=== PATIENT | female | born 1980 | race Caucasian/White ===

== ENCOUNTER 2020-08-14 08:45 | Emergency (ER) | payer MEDICAID ==
[~2020-08-14] VITALS: Ht 154.9 cm; Wt 65.9 kg
[2020-08-14 08:46] VITALS: BP 130/88
[2020-08-14] MEDS ORDERED: LORazepam 1 MG tablet PO ONE (09:20)
[2020-08-14 09:42] LABS: CLARITY,URINE CLEAR (Clear); COLOR,URINE YELLOW (Yellow); GLUCOSE, URINE NEGATIVE (Neg); KETONES,URINE TRACE mg/dl (Neg); LEUKOCYTE ESTERASE ,URINE NEGATIVE (Neg); NITRITES, URINE NEGATIVE (Neg); OCCULT BLOOD,URINE TRACE-INTACT (Neg); PH,URINE 5.5 (4.8-8.0); PROTEIN,URINE NEGATIVE (Neg); URINE HCG NEGATIVE (NEG); UROBILINOGEN,URINE 0.2 E.U/dL (0.2-1.0)
[2020-08-14 09:45] LABS: UA COLLECTION TYPE CLN CATCH MIDSTREAM
[2020-08-14 09:46] LABS: BACTERIA,URINE NONE SEEN /HPF (Neg); MUCUS STRANDS FEW /LPF (Neg); RBC,URINE 0-2 /HPF (0-2); SQUAMOUS EPITHELIAL CELL,UR FEW /LPF (FEW); WBC,URINE NONE SEEN /HPF (0-4)
[2020-08-14 09:56] LABS: URINE AMPHETAMINE SCREEN NEGATIVE (Neg); URINE BARBITUATE SCREEN NEGATIVE (Neg); URINE BENZODIAZEPINES SCREEN NEGATIVE (Neg); URINE CANNABINOID SCREEN POSITIVE (Neg); URINE COCAINE SCREEN NEGATIVE (Neg); URINE METHADONE SCREEN NEGATIVE (Neg); URINE OPIATE SCREEN NEGATIVE (Neg); URINE PHENCYCLIDINE SCREEN NEGATIVE (Neg)
[2020-08-14 10:07] LABS: BASOPHILS % (AUTO) 0.5 % (0-1); EOSINOPHILS % (AUTO) 0.3 % (0-6); HEMATOCRIT 38.6 % (35.0-45.0); HEMOGLOBIN 12.8 g/dl (12.0-16.0); LYMPHOCYTES # (AUTO) 1.5 X10'3 (1.1-4.8); LYMPHOCYTES % (AUTO) 25.8 % (21-51); MEAN CORPUSCULAR HEMOGLOBIN 29.2 PG (27.0-31.0); MEAN CORPUSCULAR HGB CONC 33.1 g/dL (33.0-36.5); MEAN PLATELET VOLUME 6.7 FL (7.4-10.4); MONOCYTES # (AUTO) 0.3 X10'3 (0-0.9); MONOCYTES % (AUTO) 4.5 % (2-12); NEUTROPHILS # (AUTO) 4.1 X10'3 (1.8-7.7); NEUTROPHILS % (AUTO) 68.9 % (42-75); PLATELET COUNT 415 X10'3 (140-440); RED BLOOD COUNT 4.38 X10'6 (4.20-5.60); RED CELL DISTRIBUTION WIDTH 15.6 % (11.5-14.5); WHITE BLOOD COUNT 5.9 X10'3 (4.5-11.0)
[2020-08-14 10:21] LABS: ALANINE AMINOTRANSFERASE 22 U/L (12-78); ALBUMIN 4.2 G/DL (3.4-5.0); ALBUMIN/GLOBULIN RATIO 1.1 (1.1-1.5); ALKALINE PHOSPHATASE 65 IU/L (46-116); ANION GAP 11 (8-16); ASPARTATE AMINO TRANSFERASE 20 U/L (10-37); BILIRUBIN,TOTAL 0.6 MG/DL (0.1-1.0); BLOOD UREA NITROGEN 13 MG/DL (7-18); BUN/CREATININE RATIO 16.9 (6.6-38.0); CHLORIDE 103 MMOL/L (99-107); CREATININE 0.77 MG/DL (0.40-0.90); ETHANOL < 0.010 GM/DL (0.0-0.010); GLUCOSE 115 MG/DL (70-104); POTASSIUM 3.7 MMOL/L (3.5-5.1); SODIUM 139 MMOL/L (135-145); TOTAL PROTEIN 7.9 G/DL (6.4-8.2); eGFR 83 ML/MIN
--- NOTE | 2020-08-14 11:35 | NUR ---
PATIENT PLACED IN ER OVERFLOW BED #20 AND DRESSED IN GREEN SCRUBS. BELONGINGS BAGGED AND PLACED IN LOCKED CABINET. PATIENT KEEPING A BOOK TO READ AT THE BEDSIDE. PATIENT IS RESTING IN BED WITHOUT COMPLAINTS. PACKET FAXED TO [facility] OFFICE.
[2020-08-14] MEDS ORDERED: CHOL100025 PO (11:54)
[2020-08-14] MEDS ORDERED: GABA300C PO (11:54)
[2020-08-14] MEDS ORDERED: DULO-31 PO (11:54)
[2020-08-14] MEDS ORDERED: PRAZ1CAP5 PO (11:54)
[2020-08-14] MEDS ORDERED: CLON-418 PO (11:54)
[2020-08-14] MEDS ORDERED: BUPR300T53 PO (11:54)
[2020-08-14] MEDS ORDERED: DEXT10CA4 PO (11:54)
[2020-08-14] MEDS ORDERED: cloNIDine 0.1 mg tablet PO PRN (12:15)
--- NOTE | 2020-08-14 12:21 | NUR ---
Received report from RN. Pt resting in bed with visitor at bedside. Calm.
--- NOTE | 2020-08-14 12:45 | NUR ---
[facility] sanding machine operator or tender here talking w pt
--- NOTE | 2020-08-14 13:15 | NUR ---
Lunch received, pt eating at bedside
--- NOTE | 2020-08-14 14:57 | NUR ---
Pt awaiting SO for d/c instructions and f/u care per [facility] arrow point attacher
--- NOTE | 2020-08-14 15:30 | NUR ---
SO here and [facility] worker talked to pt and SO about resources. wrote Rx for pt for dc
[2020-08-14] MEDS ORDERED: CLON-527 PO (15:31)
[2020-08-14] MEDS ORDERED: CLON0.1T PO (15:37)
[2020-08-15] MEDS ORDERED: cholecalciferol (vitamin D3) 1,000 unit (25mcg) tablet PO SCH (08:00)
[2020-08-15] MEDS ORDERED: buPROPion SR 150mg tablet PO SCH (08:00)
[2020-08-15] MEDS ORDERED: duloxetine 30mg CAPSULE.DR PO SCH (08:00)
== END 2020-08-14 15:45 | disposition home or self-care (01) ==
LOC: ER 08:45
DX: R45.851 Suicidal ideations (principal); F41.9 Anxiety disorder, unspecified; Z98.51 Tubal ligation status; Z79.899 Other long term (current) drug therapy
CPT/HCPCS: 36415; 80053; 80305; 80320; 81001; 81025; 84443; 85025; 99285